=== PATIENT | male | born 1960 | race Caucasian/White ===

== ENCOUNTER 2017-08-16 05:24 | Inpatient (IN) | payer BC, OTHER ==
[2017-08-08 08:48] LABS: HEMATOCRIT 44.3 % (42.0-52.0); HEMOGLOBIN 15.1 gm/dL (14.0-18.0); MCH 30.2 pg (26.0-34.0); MCHC 34.1 g/dL (28.0-37.0); MCV 88.4 fL (80.0-100.0); RBC 5.02 mil/uL (4.50-6.00); RDW 13.1 % (10.5-14.5); WBC 8.5 thou/uL (4.0-11.0)
[2017-08-08 08:49] LABS: URINE BILIRUBIN NEGATIVE (Negative); URINE BLOOD NEGATIVE (Negative); URINE CLARITY CLEAR; URINE COLOR YELLOW; URINE GLUCOSE-RANDOM* NEGATIVE (Negative); URINE KETONES NEGATIVE (Negative); URINE LEUKOCYTES-REFLEX NEGATIVE (Negative); URINE NITRITE-REFLEX NEGATIVE (Negative); URINE PROTEIN (DIPSTICK) NEGATIVE (Negative); URINE UROBILINOGEN 0.2 E.U./dl (0.2-1.0)
[2017-08-08 09:00] LABS: ALBUMIN 3.6 g/dL (3.4-5.0); CALCIUM 8.5 mg/dL (8.5-10.1)
[2017-08-08 09:08] LABS: PROTIME 9.4 Seconds (9.3-11.4)
[~2017-08-16] VITALS: Ht 182.9 cm; Wt 93.8 kg
--- NOTE | ~2017-08-16 | O ---
[address] [address] OPERATIVE REPORT Name: JOHNATHON LAWTON Room #: 416-P ADM IN M.R.#: [id number] Admission: 08/16/17 Attend Phys: Juaquin Robles MD Discharge: Date of : 60 Report #: [id number] THIS REPORT FOR: //name// CC: FAM unknown Juaquin Robles DATE OF SERVICE: 08/16/2017 SERVICE: Orthopedics. FACILITY: [facility]. SURGEON: Juaquin Robles MD CORPORATE COMMUNICATIONS SPECIALIST: None. PREOPERATIVE DIAGNOSIS: Left knee osteoarthritis. POSTOPERATIVE DIAGNOSIS: Left knee osteoarthritis. PROCEDURE: Left total knee arthroplasty. COMPLICATIONS: None. DRAINS: None. ANESTHESIA: General with regional. ESTIMATED BLOOD LOSS: 100 mL. DRAINS: None. SPECIMENS: None. FINDINGS: 1. [employer]hew size 7 Legion Oxinium femur with size 6 tibia, 32 mm patellar button and 9 mm polyethylene insert. 2. Well-balanced gaps. HISTORY AND INDICATIONS: The patient is a 57-year-old gentleman with a history of severe advanced progressive left knee osteoarthritis, had failed conservative measures. He had radiographs, which showed joint space narrowing, sclerosis and osteophyte formation and he had lifestyle limiting pain. He therefore wished to move forward with surgical treatment as conservative measures had failed. Risks, benefits, alternatives, and indications of surgery were discussed with him in detail. Risks include but not limited to pain, bleeding, infection, [address] [address] OPERATIVE REPORT Name: JOHNATHON LAWTON Room #: 416-P [facility] IN [facility]#: [id number] Admission: 08/16/17 Attend Phys: Juaquin Robles MD Discharge: Date of : 60 Report #: [id number] injury to nerves or blood vessels, persistent pain despite surgical intervention, failure of any repairs, reconstruction, progression of any preexisting chondral injury, stiffness, need for further surgery as well as complications related to anesthesia such as stroke, heart attack, pulmonary complications, thromboembolic disease and . Despite these risks, he wished to proceed. PROCEDURE IN DETAIL: After left leg was correctly identified as the operative extremity, the patient underwent placement of an adductor canal block. He was then taken to the operating room where general anesthesia was induced without complication. He was padded appropriately. Tourniquet was applied to the left leg. Prophylactic antibiotics were administered at appropriate time. Left lower extremity was prepped and draped in standard sterile fashion. A time-out procedure was performed. Esmarch was then used to exsanguinate the extremity. Tourniquet was inflated to 300 mmHg. Total tourniquet time was 84 minutes. A standard anterior approach was made to the knee with a medial parapatellar arthrotomy. The patella was inverted. The retropatellar tendon fat pad was excised as were the menisci and the cruciate ligaments. A limited medial release was performed and then the medial osteophytes were excised. The anterior cut was made with a posterior referencing technique utilized, and the femur was sized to a 7 femoral component. . The 4-in-1 cutting block was then placed after it was felt that appropriate sizing had been selected and the femoral cuts were completed. Attention was turned towards the tibia where the intramedullary as well as extramedullary alignment guides were used to assess the tibial cut alignment. The first cut was made and there was still tightness medially and the cut was rather thin medially, so I took an additional 2 mm of bone and this provided a much better tibial cut height. Again, I used the extramedullary drop guide to ensure that the cut was square. The medial gap was tight in flexion and extension. A lamina recreation programmer was utilized to perform a pie-crusting technique on the medial collateral ligament, which provided release and then he had symmetric flexion and extension gaps both medially and laterally. The patella was then prepared after the box cut was performed on the femur. Trial implants were placed, fit was appropriate and the gaps were well balanced. The patient did not have significant posterior osteophytes, so no resection was required back there. Tracking was excellent as was gap balancing, so the final implants were selected and the trials removed. The posterior soft tissues were injected with the periarticular injection cocktail and then the knee was copiously irrigated with pulse lavage and the final components were selected and they were cemented into position and excess cement was removed. As the cement [address] [address] OPERATIVE REPORT Name: JOHNATHON LAWTON Room #: 416-P [facility] IN M.R.#: [id number] Admission: 08/16/17 Attend Phys: Juaquin Robles MD Discharge: Date of : 60 Report #: [id number] cured, the tourniquet was let down and the remaining periarticular injection was placed medially, laterally, anteriorly as well as proximally and distally. Hemostasis was achieved with electrocautery. Bleeding was relatively minimal and the final polyethylene 9 mm implant was selected after the trial was once again assessed. Patellar tracking was good. The knee was once again copiously irrigated and arthrotomy was closed with 0 Vicryl suture in a [id number] fashion and a gravity flexion test was performed to confirm secure arthrotomy closure. Then the skin was closed with 2-0 Vicryl followed by skin clarence. Sterile dressing was applied followed by compression stocking and then a [employer] ice broadcast field supervisor. The patient was then awakened from anesthesia and taken to recovery room in stable condition. There were no complications. All counts were recorded as correct. <ELECTRONICALLY SIGNED> By: Juaquin Robles MD 08/17/17 [id number] Juaquin Robles MD /eulogio
[~2017-08-16 05:24] MED LIST: ACCUNEB SO1.25 MG/1 INH; ASPIR 8181 MG PO; ATORVASTATIN CA40 MG PO; IBUPROFEN 800800 M1 PO; IPRATROPIU0.2 MG/1 M; LEXAPRO 10 MG T10 M1 PO; LISINOPRIL10 MG PO; LISINOPRIL20 MG PO; NORCO 5-325 TA1 EACH PO; OMEPRAZOLE 20 M20 M1 PO; PROAIR HFA8.5 GM INH; TOPROL XL25 MG PO
[2017-08-16 13:55] VITALS: BP 124/90
[2017-08-16 19:31] VITALS: BP 139/73
[2017-08-16 20:43] VITALS: BP 121/66
[2017-08-16 22:17] VITALS: BP 104/64
[2017-08-17 00:02] VITALS: BP 108/59
[2017-08-17 04:21] VITALS: BP 110/62
[2017-08-17 05:54] LABS: HEMATOCRIT 38.8 % (42.0-52.0); MCH 29.7 pg (26.0-34.0); MCHC 33.6 g/dL (28.0-37.0); MCV 88.4 fL (80.0-100.0); RBC 4.39 mil/uL (4.50-6.00); RDW 13.2 % (10.5-14.5); WBC 15.3 thou/uL (4.0-11.0)
[2017-08-17 06:07] LABS: CALCIUM 8.3 mg/dL (8.5-10.1); POTASSIUM 4.1 mmol/L (3.5-5.1)
[2017-08-17 07:48] VITALS: BP 106/56
[2017-08-17 10:17] VITALS: BP 103/56
[2017-08-17 13:43] VITALS: BP 103/56
== END 2017-08-17 18:52 | disposition home or self-care (01) | DRG 470 ==
LOC: PRE 05:24 → TBA 05:24 → EDSTATUS 06:46 → PRE 07:01 → OR 14:15 → 4N 18:23 → TBA 18:58 → 4N 18:58 → ENTRNSPT 08-17 18:00 → 4N 08-17 18:52
PROVIDERS: Orthopaedic Surgery Sports Medicine
PROC: 0SRD069 Replacement of Left Knee Joint with Oxidized Zirconium on Polyethylene Synthetic Substitute, Cemented, Open Approach (ICD-10-PCS; principal; 2017-08-16)
PROC: 3E0R3BZ Introduction of Anesthetic Agent into Spinal Canal, Percutaneous Approach (ICD-10-PCS; principal; 2017-08-16)
DX: M17.12 Unilateral primary osteoarthritis, left knee (principal); G89.29 Other chronic pain; M54.9 Dorsalgia, unspecified; I10 Essential (primary) hypertension; E78.5 Hyperlipidemia, unspecified; G47.33 Obstructive sleep apnea (adult) (pediatric); J45.909 Unspecified asthma, uncomplicated; F32.9 Major depressive disorder, single episode, unspecified; M10.9 Gout, unspecified; I25.10 Atherosclerotic heart disease of native coronary artery without angina pectoris; Z88.6 Allergy status to analgesic agent; Z91.041 Radiographic dye allergy status; Z79.82 Long term (current) use of aspirin; Z79.899 Other long term (current) drug therapy; Z87.11 Personal history of peptic ulcer disease; Z82.49 Family history of ischemic heart disease and other diseases of the circulatory system; Z80.1 Family history of malignant neoplasm of trachea, bronchus and lung; Z80.43 Family history of malignant neoplasm of testis; Z82.3 Family history of stroke
CPT/HCPCS: 10790; 50010; 50101; 50415; 50954; 51130; 51225; 51320; 51412; 51771; 52001; 52282; 53000; 53078; 53365; 56528; 57095; 62110; 62900; 70005